=== PATIENT | male | born 1985 | race Caucasian/White ===

== ENCOUNTER 2018-07-17 22:48 | Emergency (ER) | payer MEDICAID, OTHER ==
[~2018-07-17] VITALS: Ht 175.3 cm; Wt 65.8 kg
--- NOTE | 2018-07-17 23:19 | NUR ---
Pt not in waiting room when called
[2018-07-18] MEDS ORDERED: KETOROLAC 60 MG/2 ML VIAL IM STA (00:54)
--- NOTE | 2018-07-18 00:59 | ED Upper Extremity ---
General Chief Complaint: Upper Extremity Stated Complaint: RT ARM PAIN Nursing Triage Note: Pt c/o pain to R shoulder since 07/12 and numbness to index and middle fingers on R hand Nursing Sepsis Screen: No Definite Risk Source: patient Exam Limitations: no limitations History of Present Illness Date Seen by Provider: Jul 18, 2018 Time Seen by Provider: 00:38 Initial Comments Here with report of right shoulder pain and numbness for the last few days. 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 He is right handed and was swinging a sledgehammer with his right arm. Pain seems to intimate from the right shoulder blade across the back side of the shoulder to the upper part of the arm. Tingling is really when he is holding his arm still due to pain and for the spasms. denies other injury. Has not done this before. Onset: other (2-3 days) Severity: moderate Pain/Injury Location: right shoulder Method of Injury: unknown Modifying Factors: Improves With Immobilization; Worse With Movement; Improves With Rest Allergies and Home Medications Allergies Coded Allergies: chlorpromazine (Unverified Allergy, Unknown, 07/17/18) Patient Home Medication List Home Medication List Reviewed: Yes Review of Systems Constitutional: no symptoms reported Respiratory: no symptoms reported Cardiovascular: no symptoms reported Musculoskeletal: see HPI, joint pain, muscle pain, muscle stiffness Skin: no symptoms reported Past Nfrqxpn-Vijpnv-Rcnxap Hx Past Med/Social Hx: Reviewed Nursing Past Med/Soc Hx Patient Social History Alcohol Use: Denies Use Recreational Drug Use: No Smoking Status: Current Everyday Smoker Type Used: Cigarettes Recent Foreign Travel: No Contact w/Someone Who Travel: No Recent Infectious Disease Expo: No Recent Hopitalizations: No Seasonal Allergies Seasonal Allergies: No Past Medical History Surgeries: No Respiratory: No Cardiac: No Neurological: No Genitourinary: No Gastrointestinal: No Musculoskeletal: No Endocrine: No HEENT: No Cancer: No Psychosocial: No Integumentary: No Blood Disorders: No Family Medical History Reviewed Nursing Family Hx Physical Exam Vital Signs Vital Signs - First Documented 07/17/18 23:29 Temp 98.3 Pulse 73 Resp 18 B/P (MAP) 123/79 (94) Pulse Ox 98 O2 Delivery Room Air Capillary Refill : Less Than 3 Seconds Height, Weight, BMI Height: 5'9.00" Weight: 145lbs. oz. 65.051543qc; BMI Method:Stated General Appearance: WD/WN, no apparent distress Neck: full range of motion, supple, normal inspection Cardiovascular: regular rate, rhythm, no murmur Respiratory: lungs clear, normal breath sounds Shoulder: limited ROM, pain (pain noted to the area of the right shoulder blade and posterior aspect of the right shoulder especially in forward flexion and rotation downwards.) Hand: no evidence of injury, normal ROM, Right, Left Neurologic/Tendon: normal sensation, normal motor functions Neurologic/Psychiatric: alert, oriented x 3 Skin: normal color, warm/dry Progress/Results/Core Measures Results/Orders My Orders Orders - IRIS CHAPA MD Shoulder, Right, 3 Views (07/17/18 23:39) Toradol 60 Mg Im (07/18/18 00:54) Vital Signs/I&O 07/17/18 23:29 Temp 98.3 Pulse 73 Resp 18 B/P (MAP) 123/79 (94) Pulse Ox 98 O2 Delivery Room Air Blood Pressure Mean: 94 Progress Progress Note : Progress Note Seen and evaluated. X-ray right shoulder. No acute findings. Toradol 60 mg IM. Sling. Discharged home with return precautions. Patient verbalize understanding instructions and agreement with plan. Departure Impression Primary Impression: Right shoulder injury Qualified Codes: S49.91XA - Unspecified injury of right shoulder and upper arm , initial encounter Disposition: 01 HOME, SELF-CARE Condition: Stable Departure-Patient Inst. Decision time for Depature: 00:58 Referrals: BONILLA HOLLEY MD (PCP/Family) Primary Care Physician Patient Instructions: How to Use a Shoulder Sling, Shoulder Sprain (DC), Rotator Cuff Injury (DC) Add. Discharge Instructions: All discharge instructions reviewed with patient and/or family. Voiced understanding. You may take ibuprofen 800 mg every 8 hours as needed for pain. You may also take Tylenol/acetaminophen 1000 mg every 8 hours as needed for pain.You may use lpfe-eye-bmszbat Icy Hot with lidocaine patches, Aspercreme with lidocaine patches, Salonpas with lidocaine patches for similar items to area of concern per package directions. You may use sling for comfort over the next several days and then as needed. Return for worse pain, fever, vomiting, weakness, breathing problems or other concerns as needed. IRIS CHAPA MD Jul 18, 2018 00:59
[2018-07-18 01:13] VITALS: BP 123/79
--- NOTE | 2018-07-18 05:46 | Diagnostic Imaging Report ---
INDICATION: Shoulder pain. COMPARISON: None. FINDINGS: 3 views of the right shoulder were obtained. There is no fracture, dislocation, or other acute bony abnormality identified. The soft tissues appear unremarkable. No radiopaque foreign bodies identified. The visualized portions of the right lung are clear. IMPRESSION: No acute fractures or dislocations of the right shoulder. Dictated by: Dictated on workstation # [id number]
== END 2018-07-18 01:13 | disposition home or self-care (01) ==
LOC: EDUNIT# 22:48 → ER 22:50
DX: S49.91XA Unspecified injury of right shoulder and upper arm, initial encounter (principal); F17.210 Nicotine dependence, cigarettes, uncomplicated; Z88.8 Allergy status to other drugs, medicaments and biological substances; W27.8XXA Contact with other nonpowered hand tool, initial encounter
CPT/HCPCS: 73030

== ENCOUNTER 2018-08-29 21:50 | Emergency (ER) | payer MEDICAID ==
[~2018-08-29] VITALS: Ht 175.3 cm; Wt 68.0 kg
--- NOTE | 2018-08-29 22:07 | NUR ---
pt here with " better 1/2". pt alert gcs 15. approx 2030 tonoc pt hit a table with his hand and a marielena nail flipped up in the air and when it came down it punctured pt left arm. pt said it went in his arm approx " 1 inch". pt has a nonbleeding puncture wound to left arm back of f/a prox elbow. slight swelling to wound noted. positive pulse and sensation left hand. pt relates last tetanus 2011. done ehsan pt at 2213.
[2018-08-29] MEDS ORDERED: TRIM/SULFAMETH 160/800 (SEPTRA DS) TAB PO ONE (22:15)
[2018-08-29] MEDS ORDERED: TETANUS,DIPTH,PERTUSS P/F (BOOSTRIX) 0.5 ML VIAL IM ONE (22:15)
--- NOTE | 2018-08-29 22:26 | ED Integumentary General ---
General Stated Complaint: NAIL PUNCTURED SKIN ON L ARM Source: patient Exam Limitations: no limitations History of Present Illness Date Seen by Provider: Aug 29, 2018 Time Seen by Provider: 22:24 Initial Comments 33-year-old male who presents to emergency room with complaints of a puncture wound on his left arm from the wrist. He reports not up to date on tetanus vaccine. Timing/Duration: just prior to arrival Associated Symptoms: denies symptoms Allergies and Home Medications Allergies Coded Allergies: chlorpromazine (Unverified Allergy, Unknown, 07/17/18) Home Medications Sulfamethoxazole/Trimethoprim 1 Each Tablet, 1 EACH PO BID Prescribed by: AMBER JORDAN on 08/29/188 Sulfamethoxazole/Trimethoprim 1 Each Tablet, 1 EACH PO BID Prescribed by: AMBER JODRAN on 08/29/182233 Patient Home Medication List Home Medication List Reviewed: Yes Review of Systems Review of Systems Constitutional: see HPI; No chills, No fever Skin: see HPI, other (puncture to left forearm) All Other Systems Reviewed Negative Unless Noted: Yes Past Highorh-Ddmvdo-Dpdbwv Hx Past Med/Social Hx: Reviewed Nursing Past Med/Soc Hx Patient Social History Type Used: Cigarettes Recent Foreign Travel: No Contact w/Someone Who Travel: No Recent Hopitalizations: No Seasonal Allergies Seasonal Allergies: No Past Medical History Surgeries: No Respiratory: No Cardiac: No Neurological: No Genitourinary: No Gastrointestinal: No Musculoskeletal: No Endocrine: No HEENT: No Cancer: No Psychosocial: No Integumentary: No Blood Disorders: No Family Medical History Reviewed Nursing Family Hx Physical Exam Vital Signs Vital Signs - First Documented 08/29/18 22:07 Temp 96.9 Pulse 60 Resp 16 B/P (MAP) 118/74 (89) Pulse Ox 96 O2 Delivery Room Air Capillary Refill : General Appearance: WD/WN, no apparent distress Cardiovascular: normal peripheral pulses, regular rate, rhythm, no edema, no gallop, no JVD, no murmur Respiratory: chest non-tender, lungs clear, normal breath sounds, no respir atory distress, no accessory muscle use Neurologic/Psychiatric: alert, normal mood/affect, oriented x 3 Skin: normal color, warm/dry Skin Problem Location: upper extremities (left forearm) Skin Problem Character: other (puncture wound left inner forearm) Progress/Results/Core Measures Results/Orders My Orders Orders - AMBER JORDAN Pertuss(Acell),Tet Adult (Boostrix (08/29/18 22:15) Sulfamethoxazole/Trimet Ds Tab (Bactrim (08/29/18 22:15) Vaccine Administration Single (08/29/18 ) Medications Given in ED Vital Signs/I&O 08/29/18 08/29/18 22:07 22:54 Temp 96.9 98.1 Pulse 60 60 Resp 16 16 B/P (MAP) 118/74 (89) 120/69 (86) Pulse Ox 96 96 O2 Delivery Room Air Room Air Departure Impression Primary Impression: Puncture wound of skin from metal nail Disposition: HOME, SELF-CARE Condition: Stable/Unchanged Departure-Patient Inst. Decision time for Depature: 22:25 Referrals: BONILLA HOLLEY MD (PCP/Family) Primary Care Physician Patient Instructions: Wound Care (DC) Add. Discharge Instructions: Watch for signs of infection such as increased redness, swelling, drainage, pain. Take medications as directed. Wash the wound with soap and water daily and change your dressing daily. You may use ibuprofen and Tylenol as directed by the bottle for pain relief. Follow-up with her primary care provider within 1 week for recheck. Return back to the emergency room for worsening symptoms or concerns as needed. Scripts Sulfamethoxazole/Trimethoprim (Bactrim Ds Tablet) 1 Each Tablet 1 EACH PO BID for 7 Days, #14 TAB Prov: AMBER JORDAN 08/29/18 Sulfamethoxazole/Trimethoprim (Bactrim Ds Tablet) 1 Each Tablet 1 EACH PO BID for 7 Days, #14 TAB Prov: AMBER JORDAN 08/29/18 AMBER JORDAN Aug 29, 2018 22:26
[2018-08-29] MEDS ORDERED: SULF1TAB35 PO ×2 (22:28→22:34)
[2018-08-29 22:54] VITALS: BP 120/69
--- NOTE | 2018-08-29 22:54 | NUR ---
d/c instructions to pt. told to read all papers. scripts paper only. pt left ambualtory with better 1/2. pt knows f/u. i went over the handtyped by information on the chart pt had no iv.
--- OUTSIDE RECORDS SUMMARY | 2018-08-30 00:14 | XMS REPORT | Continuity of Care Document ---
Author Organization Unknown Address Unknown Allergies Active Description Code Type Severity Reaction Onset Reported/Identified Relationship to Patient Clinical Status Yes chlorpromazine [id number] Drug Allergy Unknown N/A 07/17/2018 Medications There is no data. Problems Date Dx Coded Attending Type Code Diagnosis Diagnosed By 07/18/2018 IRIS CHAPA MD Ot F17.210 NICOTINE DEPENDENCE, CIGARETTES, UNCOMPL 07/18/2018 IRIS CHAPA MD Ot M25.511 PAIN IN RIGHT SHOULDER 07/18/2018 IRIS CHAPA MD Ot S49.91XA UNSP INJURY OF RIGHT SHOULDER AND UPPER 07/18/2018 IRIS CHAPA MD Ot W27.8XXA CONTACT WITH OTHER NONPOWERED HAND TOOL, 07/18/2018 IRIS CHAPA MD Ot Z88.8 ALLERGY STATUS TO OTH DRUG/MEDS/BIOL SUB 07/20/2018 IRIS CHAPA MD Ot F17.210 NICOTINE DEPENDENCE, CIGARETTES, UNCOMPL 07/20/2018 IRIS CHAPA MD Ot M25.511 PAIN IN RIGHT SHOULDER 07/20/2018 IRIS CHAPA MD Ot S49.91XA UNSP INJURY OF RIGHT SHOULDER AND UPPER 07/20/2018 IRIS CHAPA MD Ot W27.8XXA CONTACT WITH OTHER NONPOWERED HAND TOOL, 07/20/2018 IRIS CHAPA MD Ot Z88.8 ALLERGY STATUS TO OTH DRUG/MEDS/BIOL SUB Procedures There is no data. Results There is no data. Encounters ACCT No. Visit Date/Time Discharge Status Pt. Type Provider Facility Loc./Unit Complaint [id number] 07/25/2018 14:40:00 07/25/2018 23:59:59 [facility] Outpatient KARINA IVY APRN [id number] 07/17/2018 22:50:00 07/18/2018 01:13:00 DIS Emergency SAMMI CHAVARRIA, IRIS Huntley [facility] ER RT ARM PAIN [id number] 08/29/2018 21:52:00 ACT Emergency AMBER JORDAN [facility] ER NAIL PUNCTURED SKIN ON L ARM
== END 2018-08-29 22:54 | disposition home or self-care (01) ==
LOC: EDUNIT# 21:50 → ER 21:52
DX: S41.132A Puncture wound without foreign body of left upper arm, initial encounter (principal); Z23 Encounter for immunization; Z88.8 Allergy status to other drugs, medicaments and biological substances; W45.0XXA Nail entering through skin, initial encounter
CPT/HCPCS: 90471; 90715; 99282

== ENCOUNTER 2018-12-02 04:17 | Emergency (ER) | payer MEDICAID ==
[~2018-12-02] VITALS: Ht 175.3 cm; Wt 66.2 kg
[~2018-12-02 04:17] MED LIST: SULF1TAB35 PO
--- NOTE | 2018-12-02 06:09 | ED Cough/URI ---
General Chief Complaint: Cough/Cold/Flu Symptoms Stated Complaint: CONGESTION Nursing Triage Note: C/O CONGESTION & SORE THROAT X2 DAYS Sepsis Screen: No Definite Risk Source: patient History of Present Illness Date Seen by Provider: Dec 02, 2018 Time Seen by Provider: 05:53 Initial Comments PT ARRIVES VIA POV--5 FAMILY MEMBERS ALL BEING SEEN FOR SAME, AND ALL STARTED GETTING SICK YESTERDAY / TONIGHT WITH RUNNY NOSES PT STATES HE STARTED HAVING A SORE THROAT YESTERDAY AND TONIGHT, RIGHT BEFORE HE WENT TO BED, HE HAD A LITTLE RUNNY NOSE, CLEAR DRAINAGE, AND OCCASIONAL MILD NON-PRODUCTIVE COUGH NO FEVER HAS NOT TAKEN ANYTHING FOR SYMPTOMS AT ANY TIME PT SMOKES 1/2 PPD HAS HISTORY OF MULTI-SUBSTANCE ABUSE, INCLUDING IV METH ALSO WITH HISTORY OF ALCOHOL ABUSE PCP: DR HOLLEY AT [facility] Allergies and Home Medications Allergies Coded Allergies: chlorpromazine (Unverified Allergy, Unknown, 07/17/18) Home Medications Sulfamethoxazole/Trimethoprim 1 Each Tablet, 1 EACH PO BID Prescribed by: AMBER JORDAN on 08/29/188 Sulfamethoxazole/Trimethoprim 1 Each Tablet, 1 EACH PO BID Prescribed by: AMBER JORDAN on 08/29/184 Patient Home Medication List Home Medication List Reviewed: Yes Review of Systems Review of Systems Constitutional: no symptoms reported; No chills, No diaphoresis, No fever EENTM: nose congestion, throat pain; No ear pain, No throat swelling Respiratory: see HPI, cough; No short of breath, No wheezing Cardiovascular: no symptoms reported Gastrointestinal: no symptoms reported Genitourinary: no symptoms reported Musculoskeletal: no symptoms reported Skin: no symptoms reported Psychiatric/Neurological: No Symptoms Reported Hematologic/Lymphatic: No Symptoms Reported Immunological/Allergic: no symptoms reported Past Tpptxaf-Veohvf-Hmmqtx Hx Patient Social History Alcohol Use: Past History (HISTORY OF ABUSE--CLAIMS NO RECENT USE, PER PT ON 12/02/18) Recreational Drug Use: Yes (HX OF POLYSUBSTANCE ABUSE, INCLUDING IV METH--CLAIMS NO RECENT USE, PER PT ON 12/02/18) Smoking Status: Current Everyday Smoker (1/2 PPD) Type Used: Cigarettes (/2 PPD) Recent Foreign Travel: No Contact w/Someone Who Travel: No Recent Infectious Disease Expo: No Recent Hopitalizations: No Physical Abuse: No Sexual Abuse: No Mistreated: No Fear: No Immunizations Up To Date Tetanus Booster (TDap): More than 5yrs Seasonal Allergies Seasonal Allergies: No Past Medical History Surgeries: Yes (JAW FX/ REPAIR) Respiratory: No Cardiac: No Neurological: Yes Headaches /Migraines Genitourinary: No Gastrointestinal: No Musculoskeletal: No Endocrine: No HEENT: Yes (JAW FX / REPAIR; DENTURES) Cancer: No Psychosocial: Yes ADD/ADHD, Anxiety, Bipolar, Depression Integumentary: No Blood Disorders: No Physical Exam Vital Signs - First Documented 12/02/18 05:12 Temp 98.2 Pulse 60 Resp 20 B/P (MAP) 126/85 (99) Pulse Ox 98 O2 Delivery Room Air Capillary Refill : Less Than 3 Seconds Height: 5'9.00" Weight: 146lbs. oz. 66.650905gc; BMI Method:Stated General Appearance: WD/WN, no apparent distress, other (DOES NOT APPEAR ILL OR TO BE IN ANY DISCOMFORT OR DISTRESS; DIRTY, STRONG ODOR OF CIGARETTES. NO COUGH NOTED AT ANY TIME) HEENT: PERRL/EOMI, TMs normal; No pharyngeal erythema; other (NASAL CONGESTION WITH CLEAR POST NASAL DRAINAGE. 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, no motor/sensory deficits, alert, normal mood/affect, oriented x 3 Skin: normal color, warm/dry, tattoos/piercings Progress/Results/Core Measures Suspected Sepsis Recent Fever Within 48 Hours: No Infection Criteria Present: None New/Unexplained Altered Menta: No Sepsis Screen: No Definite Risk SIRS Temperature:98.2 Pulse: 60 Respiratory Rate: 20 Blood Pressure 126 /85 Mean: 99 Results/Orders Lab Results Laboratory Tests Test 12/02/18 05:45 Range/Units Group A Streptococcus Screen NEGATIVE NEGATIVE Micro Results Microbiology 12/02/18 Influenza Types A,B Antigen (BABATUNDE) - Final, Complete My Orders Orders - ROBBIE FLANAGAN DO Rapid Strep A Screen (12/02/18 05:47) Influenza A And B Antigens (12/02/18 05:47) Vital Signs/I&O 12/02/18 12/02/18 05:12 05:12 Temp 98.2 Pulse 60 Resp 20 B/P (MAP) 126/85 (99) Pulse Ox 98 O2 Delivery Room Air Capillary Refill : Less Than 3 Seconds Blood Pressure Mean: 99 Departure Impression Primary Impression: Upper respiratory infection Disposition: HOME, SELF-CARE Condition: Stable Departure-Patient Inst. Referrals: BONILLA HOLLEY MD (PCP/Family) Primary Care Physician Patient Instructions: Viral Upper Respiratory Infection, Adult (DC) Add. Discharge Instructions: HOME, REST LOTS OF CLEAR LIQUIDS OVER THE COUNTER CLARITIN FOR NASAL DRAINAGE, ROBITUSSIN DM FOR COUGH AND CONGESTION TYLENOL AND MOTRIN FOR PAIN OR FEVER FOLLOW UP WITH DR. HOLLEY/ [facility] IN 3-4 DAYS IF NO BETTER All discharge instructions reviewed with patient and/or family. Voiced understanding. ROBBIE FLANAGAN DO Dec 02, 2018 06:09
[2018-12-02 06:49] VITALS: BP 126/85
== END 2018-12-02 06:50 | disposition home or self-care (01) ==
LOC: EDUNIT# 04:17 → ER 04:21
DX: J06.9 Acute upper respiratory infection, unspecified (principal); G43.909 Migraine, unspecified, not intractable, without status migrainosus; F90.9 Attention-deficit hyperactivity disorder, unspecified type; F41.9 Anxiety disorder, unspecified; F31.9 Bipolar disorder, unspecified; F17.210 Nicotine dependence, cigarettes, uncomplicated; Z88.8 Allergy status to other drugs, medicaments and biological substances
CPT/HCPCS: 87430; 87804

== ENCOUNTER 2019-03-10 20:14 | Emergency (ER) | payer MEDICAID ==
[~2019-03-10] VITALS: Ht 175 cm; Wt 63.5 kg
--- NOTE | 2019-03-10 20:45 | ED General ---
General Chief Complaint: General Problems/Pain Stated Complaint: CHILLS, SWEATS Nursing Triage Note: Patient ambulatory to ER with complaint of fever, chills, cough, fatigue and red, raised spots on bilateral arms. Patient states this began approximately 3 days ago. Nursing Sepsis Screen: Possible Severe Sepsis Risk Source of Information: Patient Exam Limitations: No Limitations History of Present Illness Date Seen by Provider: Mar 10, 2019 Time Seen by Provider: 20:44 Initial Comments Fever chills cough fatigue for 3 days, has some pustules volar left forearm. Unmeasured fever, denies methamphetamine use for several years since 2007 Timing/Duration: 2-3 Days Severity: Moderate Associated Systoms: Cough Allergies and Home Medications Allergies Coded Allergies: chlorpromazine (Unverified Allergy, Unknown, 07/17/18) Home Medications Cephalexin 500 Mg Capsule, 500 MG PO TID Prescribed by: WILLIAM MORTENSEN on 03/10/192130 D-Methorphan Hb/P-Epd HCl/Bpm 118 Ml Syrup, 5 ML PO Q4H PRN for COUGH Prescribed by: WILLIAM MORTENSEN on 03/10/192130 Sulfamethoxazole/Trimethoprim 1 Each Tablet, 1 EACH PO BID Prescribed by: AMBER JORDAN on 08/29/182227 Sulfamethoxazole/Trimethoprim 1 Each Tablet, 1 EACH PO BID Prescribed by: AMBER JORDAN on 08/29/182233 Patient Home Medication List Home Medication List Reviewed: Yes Review of Systems Review of Systems Constitutional: see HPI, chills, fever EENTM: see HPI Respiratory: see HPI, cough Cardiovascular: no symptoms reported Genitourinary: no symptoms reported Musculoskeletal: no symptoms reported Skin: no symptoms reported Psychiatric/Neurological: No Symptoms Reported Hematologic/Lymphatic: No Symptoms Reported Past Utgfxsj-Xcstvo-Flcrhh Hx Patient Social History Alcohol Use: Denies Use Recreational Drug Use: No Smoking Status: Current Everyday Smoker Type Used: Cigarettes 2nd Hand Smoke Exposure: Yes Recent Foreign Travel: No Contact w/Someone Who Travel: No Recent Infectious Disease Expo: No Recent Hopitalizations: No Physical Abuse: No Sexual Abuse: No Mistreated: No Fear: No Immunizations Up To Date Tetanus Booster (TDap): More than 5yrs Seasonal Allergies Seasonal Allergies: No Past Medical History Surgeries: Yes (JAW FX/ REPAIR) Respiratory: No Cardiac: No Neurological: Yes Headaches /Migraines Genitourinary: No Gastrointestinal: No Musculoskeletal: No Endocrine: No HEENT: Yes (JAW FX / REPAIR; DENTURES) Cancer: No Psychosocial: Yes ADD/ADHD, Anxiety, Bipolar, Depression Integumentary: No Blood Disorders: No Physical Exam Vital Signs Vital Signs - First Documented 03/10/19 20:33 Temp 36.6 Pulse 102 Resp 18 B/P (MAP) 126/84 (98) Pulse Ox 97 O2 Delivery Room Air Capillary Refill : Less Than 3 Seconds Height, Weight, BMI Height: 5'9.00" Weight: 146lbs. oz. 66.952548ul; 20.00 BMI Method:Stated General Appearance: No Apparent Distress, WD/WN Eyes: Bilateral Eye Normal Inspection, Bilateral Eye PERRL, Bilateral Eye EOMI Neck: Full Range of Motion, Normal Inspection Respiratory: No Accessory Muscle Use, No Respiratory Distress Cardiovascular: Tachycardia Gastrointestinal: Normal Bowel Sounds, Non Tender, Soft Neurologic/Psychiatric: Alert, Oriented x3 Skin: Normal Color, Warm/Dry, Other (few pustules to the volar left forearm) Progress/Results/Core Measures Suspected Sepsis Recent Fever Within 48 Hours: Yes Infection Criteria Present: Suspected New Infection New/Unexplained Altered Menta: No Sepsis Screen: Possible Severe Sepsis Risk SIRS Temperature: Pulse: 102 Respiratory Rate: 18 Blood Pressure 126 /84 Mean: 98 Results/Orders Micro Results Microbiology 03/10/19 Influenza Types A,B Antigen (BABATUNDE) - Final, Complete My Orders Orders - WILLIAM MORTENSEN APRN Influenza A And B Antigens (03/10/19 20:39) Chest Pa/Lat (2 View) (03/10/19 20:39) Vital Signs/I&O 03/10/19 20:33 Temp 36.6 Pulse 102 Resp 18 B/P (MAP) 126/84 (98) Pulse Ox 97 O2 Delivery Room Air Capillary Refill : Less Than 3 Seconds Blood Pressure Mean: 98 POS Departure Impression Primary Impression: Viral syndrome Disposition: 01 HOME, SELF-CARE Condition: Stable Departure-Patient Inst. Decision time for Depature: 21:18 Referrals: BONILLA HOLLEY MD (PCP/Family) Primary Care Physician Patient Instructions: Folliculitis, Viral Syndrome (DC) Scripts D-Methorphan Hb/P-Epd HCl/Bpm (Bromfed Dm Cough Syrup) 118 Ml Syrup 5 ML PO Q4H PRN for COUGH for 7 Days, #120 ML Prov: WILLIAM MORTENSEN APRN 03/10/19 Cephalexin (Keflex) 500 Mg Capsule 500 MG PO TID, #21 CAP Prov: WILLIAM MORTENSEN APRN 03/10/19 WILLIAM MORTENSEN APRN Mar 10, 2019 20:45 POS
--- NOTE | 2019-03-10 21:18 | Diagnostic Imaging Report ---
PATIENT HISTORY: Cough. TECHNIQUE: Two views of the chest. COMPARISON: None FINDINGS: The lung volumes are normal. No focal consolidation is seen. No large pleural effusion or pneumothorax is seen. The cardiomediastinal silhouette is normal in size and contour. No acute osseous abnormality is seen. IMPRESSION: No acute pulmonary abnormality seen. Dictated by: Dictated on workstation # [id number]
[2019-03-10] MEDS ORDERED: CEPH-507 PO (21:31)
[2019-03-10] MEDS ORDERED: D-ME118S33 PO (21:31)
[2019-03-10 21:35] VITALS: BP 125/82
== END 2019-03-10 21:36 | disposition home or self-care (01) ==
LOC: EDUNIT# 20:14 → ER 20:15
DX: B34.9 Viral infection, unspecified (principal); G43.909 Migraine, unspecified, not intractable, without status migrainosus; F90.9 Attention-deficit hyperactivity disorder, unspecified type; F41.9 Anxiety disorder, unspecified; F31.9 Bipolar disorder, unspecified; F17.210 Nicotine dependence, cigarettes, uncomplicated; Z88.8 Allergy status to other drugs, medicaments and biological substances
CPT/HCPCS: 71046; 87804